=== PATIENT | female | born 1945 | race Caucasian/White ===

== ENCOUNTER 2016-05-20 17:21 | Inpatient (IN) | payer MEDICARE ==
[~2016-05-20] VITALS: Ht 165.1 cm; Wt 78.0 kg
[~2016-05-20 17:21] MED LIST: ADAL40KI SC; ALBU8.5H5 INH; ALLO300T PO; AMOX-291 PO; AMPI3VIA IV; BIOT25004 PO; CHOL10002 PO; CIPR500T87 PO; CYCL-259 PO; DIPH25CA61 PO; ENOX40SY4 SQ; ENOX80SY4 SQ; EZET1TAB5 PO; FLUO20CA19 PO; FOLI-17 PO; FURO-92 PO; GABA100C PO; HYDR-3144 PO; HYDR-3240 PO; IRON PO; LEVO137T22 PO; METH2.5T PO; MORP15TA3 PO; POTA20PA8 PO; PRED10TA PO; PRED20TA PO; PRED5TAB19 PO; RITU10VI IVPB; TRAM-28 PO; TRAM50TA2 PO; VITA400C14 PO; WARF4TAB7 PO
[2016-05-20] MEDS ORDERED: SODIUM CHLORIDE FLUSH 10ML SYR IVF ONE (17:30)
[2016-05-20] MEDS ORDERED: ONDANSETRON 2MG/ML, 2ML IVPush ONE (17:30)
[2016-05-20] MEDS ORDERED: SODIUM CHLORIDE 0.9% 1,000 ML IV ONE ×2 (17:30→18:45)
[2016-05-20] MEDS ORDERED: methylPREDNISolone SOD SUCC 125 MG/2 ML IVPush ONE (17:30)
[2016-05-20] MEDS ORDERED: MORPHINE SULFATE 4 MG/ML, 1ML IVPush PRN ×2 (17:30→23:00)
[2016-05-20 18:04] LABS: HEMOGLOBIN 11.7 g/dL (11.7-16.4)
[2016-05-20] MEDS ORDERED: methylPREDNISolone SOD SUCC 125 MG/2 ML ONE (18:10)
[2016-05-20] MEDS ORDERED: MORPHINE SULFATE 4 MG/ML, 1ML ONE (18:10)
[2016-05-20] MEDS ORDERED: ONDANSETRON 2MG/ML, 2ML ONE (18:10)
[2016-05-20 18:18] LABS: BLOOD UREA NITROGEN 21 mg/dL (7-18)
[2016-05-20 18:29] LABS: C-REACTIVE PROTEIN, QUANT > 19.00 mg/dL (0.02-0.49); DIFF TOTAL CELLS COUNTED 100 CELL DIFF
[2016-05-20 18:31] LABS: VERIFY COUNTS? YES
[2016-05-20] MEDS ORDERED: PIPERACILLIN/TAZO/PMX 3.375GM 50 ML IV ONE (19:00)
[2016-05-20] MEDS ORDERED: SODIUM CHLORIDE 0.9%, 500ML IVBOLUS ONE (19:30)
[2016-05-20 19:55] LABS: ICTOTEST NEGATIVE
[2016-05-20] MEDS ORDERED: PIPERACILLIN/TAZO/PMX 3.375GM 50 ML ONE (19:58)
[2016-05-20] MEDS ORDERED: LINA5TAB PO (20:17)
[2016-05-20] MEDS ORDERED: OMEP40CA6 PO (20:17)
[2016-05-20] MEDS: PIPERACILLIN/TAZO/PMX 3.375GM 50 ML IV SCH (20:55)
[2016-05-20] MEDS ORDERED: DOCUSATE 100 MG CAPSULE PO PRN (21:00)
[2016-05-20] MEDS ORDERED: ACETAMINOPHEN 325 MG TABLET PO PRN (21:00)
[2016-05-20] MEDS ORDERED: BISACODYL 10 MG SUPP PR PRN (21:00)
[2016-05-20] MEDS ORDERED: POLYETHYLENE GLYCOL 17 GM PACKET PO PRN (21:00)
[2016-05-20 21:28] LABS: IS PT STATUS REG ER OR PRE ER? YES
[2016-05-20] MEDS: PREDNISONE MC SCH (22:30)
[2016-05-20] MEDS: LINAGLIPTIN MC SCH (22:30)
[2016-05-20] MEDS ORDERED: HEPARIN 5,000 UNITS/ML, 1ML IV ONE (22:30)
[2016-05-20 22:43] VITALS: BP 99/61
[2016-05-20] MEDS: SODIUM CHLORIDE 0.9% 1,000 ML IV SCH (23:10)
[2016-05-20] MEDS: GABAPENTIN 100 MG CAPSULE PO SCH (23:15)
[2016-05-20] MEDS ORDERED: WARFARIN 3 MG TABLET PO-COUM ONE (23:30)
[2016-05-20] MEDS: INSULIN REGULAR 100 UNITS/ML, 3ML VIAL SQ-INSULIN SCH (23:42)
[2016-05-20] MEDS: HEPARIN 25,000 UNITS/500ML PMX 500 ML IV PRN (23:57)
[2016-05-21 02:58] VITALS: BP 90/56
[2016-05-21 03:14] LABS: HEMOGLOBIN 10.2 g/dL (11.7-16.4)
[2016-05-21 03:25] LABS: ASPARTATE AMINO TRANSFERASE 7 U/L (15-37); BLOOD UREA NITROGEN 23 mg/dL (7-18)
[2016-05-21 03:33] LABS: IS PT STATUS REG ER OR PRE ER? NO
[2016-05-21 03:43] LABS: DIFF TOTAL CELLS COUNTED 100 CELL DIFF
[2016-05-21 03:45] LABS: VERIFY COUNTS? YES
[2016-05-21 03:46] LABS: ANISOCYTOSIS 1+; LARGE PLATELETS 1+; POIKILOCYTOSIS 1+; POLYCHROMASIA 1+
[2016-05-21] MEDS: PIPERACILLIN/TAZO/PMX 3.375GM 50 ML IV SCH ×3 (04:12→21:06)
[2016-05-21] MEDS: LINAGLIPTIN MC SCH ×3 (05:52→22:30)
[2016-05-21] MEDS: PREDNISONE MC SCH ×2 (05:52→13:27)
[2016-05-21] MEDS: SODIUM CHLORIDE 0.9% 1,000 ML IV SCH (06:16)
[2016-05-21] MEDS: LEVOTHYROXINE 137 MCG TABLET PO SCH (06:16)
[2016-05-21 06:40] VITALS: BP 104/64
[2016-05-21] MEDS: INSULIN REGULAR 100 UNITS/ML, 3ML VIAL SQ-INSULIN SCH ×4 (08:13→21:21)
[2016-05-21] MEDS: GABAPENTIN 100 MG CAPSULE PO SCH ×2 (08:15→21:06)
[2016-05-21] MEDS: OMEPRAZOLE 20 MG CAPSULE.DR PO SCH (08:16)
[2016-05-21] MEDS: FLUOXETINE 20 MG CAPSULE PO SCH (08:17)
[2016-05-21] MEDS: FOLIC ACID 1 MG TABLET PO SCH (08:17)
[2016-05-21] MEDS: LINAGLIPTIN HOMEMEDPO SCH (08:21)
[2016-05-21 12:49] VITALS: BP 106/73
[2016-05-21] MEDS: HEPARIN 5,000 UNITS/ML, 1ML IV PRN ×2 (13:51→21:03)
[2016-05-21] MEDS ORDERED: WARFARIN 7.5 MG TABLET PO-COUM ONE (18:00)
[2016-05-21 18:25] VITALS: BP 110/69
[2016-05-21] MEDS: HEPARIN 25,000 UNITS/500ML PMX 500 ML IV PRN (21:04)
[2016-05-22 00:13] VITALS: BP 100/62
[2016-05-22 03:16] LABS: HEMOGLOBIN 9.1 g/dL (11.7-16.4)
[2016-05-22 03:25] LABS: BLOOD UREA NITROGEN 25 mg/dL (7-18)
[2016-05-22] MEDS: HEPARIN 25,000 UNITS/500ML PMX 500 ML IV PRN (03:51)
[2016-05-22] MEDS: PIPERACILLIN/TAZO/PMX 3.375GM 50 ML IV SCH (03:53)
[2016-05-22] MEDS: LEVOTHYROXINE 137 MCG TABLET PO SCH (05:15)
[2016-05-22 06:33] VITALS: BP 107/66
[2016-05-22] MEDS: INSULIN REGULAR 100 UNITS/ML, 3ML VIAL SQ-INSULIN SCH ×4 (07:00→21:00)
[2016-05-22] MEDS: FLUOXETINE 20 MG CAPSULE PO SCH (10:14)
[2016-05-22] MEDS: NAPHAZOLINE/PHENIRAMINE OPHTH EACHEYE SCH ×2 (10:14→21:28)
[2016-05-22] MEDS: GABAPENTIN 100 MG CAPSULE PO SCH ×2 (10:15→21:21)
[2016-05-22] MEDS: FOLIC ACID 1 MG TABLET PO SCH (10:15)
[2016-05-22] MEDS: OMEPRAZOLE 20 MG CAPSULE.DR PO SCH (10:15)
[2016-05-22] MEDS: FUROSEMIDE 20 MG TABLET PO SCH (10:15)
[2016-05-22] MEDS: LINAGLIPTIN HOMEMEDPO SCH (10:16)
[2016-05-22] MEDS: POTASSIUM CHLORIDE 20 MEQ PACKET PO SCH (10:16)
[2016-05-22] MEDS: HEPARIN 5,000 UNITS/ML, 1ML IV PRN (11:18)
[2016-05-22] MEDS: LEVOFLOXACIN/PMX 750MG/150ML 150 ML IV SCH (12:23)
[2016-05-22 13:27] VITALS: BP 121/78
[2016-05-22] MEDS: FERROUS SULFATE 325 MG TABLET PO SCH (16:47)
[2016-05-22] MEDS ORDERED: WARFARIN 5 MG TABLET PO-COUM ONE (18:00)
[2016-05-22 18:38] VITALS: BP 144/82
[2016-05-23 00:40] VITALS: BP 147/87
[2016-05-23] MEDS: LEVOTHYROXINE 137 MCG TABLET PO SCH (05:07)
[2016-05-23] MEDS: HEPARIN 25,000 UNITS/500ML PMX 500 ML IV PRN (05:09)
[2016-05-23 05:26] LABS: HEMOGLOBIN 9.1 g/dL (11.7-16.4)
[2016-05-23 05:43] LABS: BLOOD UREA NITROGEN 24 mg/dL (7-18)
[2016-05-23] MEDS: INSULIN REGULAR 100 UNITS/ML, 3ML VIAL SQ-INSULIN SCH ×3 (07:00→17:04)
[2016-05-23 07:01] VITALS: BP 149/89
[2016-05-23] MEDS: POTASSIUM CHLORIDE 20 MEQ PACKET PO SCH (08:28)
[2016-05-23] MEDS: FOLIC ACID 1 MG TABLET PO SCH (08:28)
[2016-05-23] MEDS: FLUOXETINE 20 MG CAPSULE PO SCH (08:28)
[2016-05-23] MEDS: OMEPRAZOLE 20 MG CAPSULE.DR PO SCH (08:28)
[2016-05-23] MEDS: NAPHAZOLINE/PHENIRAMINE OPHTH EACHEYE SCH (08:28)
[2016-05-23] MEDS: GABAPENTIN 100 MG CAPSULE PO SCH (08:28)
[2016-05-23] MEDS: FERROUS SULFATE 325 MG TABLET PO SCH ×2 (08:28→17:04)
[2016-05-23] MEDS: LINAGLIPTIN HOMEMEDPO SCH (08:29)
[2016-05-23] MEDS: FUROSEMIDE 20 MG TABLET PO SCH (08:29)
[2016-05-23] MEDS: LEVOFLOXACIN/PMX 750MG/150ML 150 ML IV SCH (11:55)
[2016-05-23 12:41] VITALS: BP 146/81
[2016-05-23] MEDS ORDERED: ENOXAPARIN 80 MG/0.8 ML SQ SCH (14:30)
[2016-05-23] MEDS ORDERED: PRED10TA PO (16:11)
[2016-05-23] MEDS ORDERED: LEVO750T26 PO (16:11)
[2016-05-23] MEDS ORDERED: WARFARIN 2 MG TABLET PO-COUM ONE (18:00)
[2016-05-24] MEDS ORDERED: LEVOFLOXACIN 750 MG TABLET PO SCH (12:00)
== END 2016-05-23 18:00 | disposition home or self-care (01) | DRG 871 ==
LOC: ED 18:12 → EDIP 20:43 → 3NW 21:57
PROVIDERS: ADMIT Internal Medicine
DX: A41.59 Other Gram-negative sepsis (principal); N17.0 Acute kidney failure with tubular necrosis; I50.32 Chronic diastolic (congestive) heart failure; N12 Tubulo-interstitial nephritis, not specified as acute or chronic; E11.65 Type 2 diabetes mellitus with hyperglycemia; I10 Essential (primary) hypertension; M06.9 Rheumatoid arthritis, unspecified; M10.9 Gout, unspecified; D64.9 Anemia, unspecified; B96.1 Klebsiella pneumoniae [K. pneumoniae] as the cause of diseases classified elsewhere; M19.90 Unspecified osteoarthritis, unspecified site; I27.2 Other secondary pulmonary hypertension; B96.89 Other specified bacterial agents as the cause of diseases classified elsewhere; I11.0 Hypertensive heart disease with heart failure; E66.9 Obesity, unspecified; N31.9 Neuromuscular dysfunction of bladder, unspecified; G62.9 Polyneuropathy, unspecified; E03.9 Hypothyroidism, unspecified; Z79.52 Long term (current) use of systemic steroids; Z87.891 Personal history of nicotine dependence; Z83.3 Family history of diabetes mellitus; Z79.899 Other long term (current) drug therapy; Z80.1 Family history of malignant neoplasm of trachea, bronchus and lung; Z80.41 Family history of malignant neoplasm of ovary; Z68.28 Body mass index [BMI] 28.0-28.9, adult; Z86.711 Personal history of pulmonary embolism; Z90.89 Acquired absence of other organs; Z90.49 Acquired absence of other specified parts of digestive tract; Z90.710 Acquired absence of both cervix and uterus
CPT/HCPCS: 36415; 71010; 80048; 80053; 81001; 82040; 82550; 82962; 83605; 83735; 84100; 84145; 84439; 84443; 84484; 84550; 85025; 85520; 85610; 85651; 86140; 87040; 87077; 87086; 87186; 96361; 96365; 96366; 96375; J1644; J1650; J1815; J1956; J2405; J2543; J2930; J7030; J7040; J7512

== ENCOUNTER 2016-05-26 18:34 | Inpatient (IN) | payer MEDICARE ==
[~2016-05-26] VITALS: Ht 165.1 cm; Wt 82.7 kg
[~2016-05-26 18:34] MED LIST changes: +LEVO750T26 PO; +LINA5TAB PO; +OMEP40CA6 PO
[2016-05-26] MEDS ORDERED: POTA25TA4 PO (19:26)
[2016-05-26] MEDS ORDERED: TRAM-28 PO (19:26)
[2016-05-26] MEDS ORDERED: RITU10VI IV (19:26)
[2016-05-26] MEDS ORDERED: SIMV40TA3 PO (19:26)
[2016-05-26] MEDS ORDERED: SODIUM CHLORIDE 0.9% 1,000ML IVBOLUS ONE (19:30)
[2016-05-26 20:02] LABS: ASPARTATE AMINO TRANSFERASE 10 U/L (15-37); BLOOD UREA NITROGEN 19 mg/dL (7-18)
[2016-05-26 20:12] LABS: HEMOGLOBIN 12.7 g/dL (11.7-16.4)
[2016-05-26 20:28] LABS: ANISOCYTOSIS 1+; MICROCYTOSIS 1+; POLYCHROMASIA 1+; SCHISTOCYTES 1+; SPHEROCYTES 1+
[2016-05-26 22:37] VITALS: BP 108/71
[2016-05-27] MEDS ORDERED: TEMAZEPAM 15 MG CAPSULE PO PRN (00:30)
[2016-05-27] MEDS: GABAPENTIN 300 MG CAPSULE PO SCH ×3 (01:09→20:12)
[2016-05-27] MEDS: SIMVASTATIN 40 MG TABLET PO SCH ×2 (01:09→20:13)
[2016-05-27 02:29] VITALS: BP 105/61
[2016-05-27] MEDS: FERROUS SULFATE 325 MG TABLET PO SCH (08:49)
[2016-05-27] MEDS: OMEPRAZOLE 20 MG CAPSULE.DR PO SCH (08:49)
[2016-05-27] MEDS: FLUOXETINE 20 MG CAPSULE PO SCH (08:49)
[2016-05-27] MEDS: SULFAMETH./TRIMETHOPRIM DS 800MG/160MG TABLET PO SCH ×2 (08:49→20:12)
[2016-05-27] MEDS: FOLIC ACID 1 MG TABLET PO SCH (08:50)
[2016-05-27] MEDS: VITAMIN E 400 UNITS CAPSULE PO SCH (08:50)
[2016-05-27] MEDS: FUROSEMIDE 20 MG TABLET PO SCH (08:50)
[2016-05-27] MEDS: LEVOTHYROXINE 112 MCG TABLET PO SCH (08:50)
[2016-05-27] MEDS: CHOLECALCIFEROL 1,000 UNIT TABLET PO SCH (08:50)
[2016-05-27] MEDS: BIOTIN 5000 MCG HOMEMEDPO SCH (09:00)
[2016-05-27] MEDS ORDERED: POTASSIUM CHLORIDE 10 MEQ TABLET.ER PO SCH (09:00)
[2016-05-27] MEDS: TEMPLATE NON-FORMULARY MED. (Linagliptin** (Tradjenta**) 5 MG) HOMEMEDPO SCH (09:00)
[2016-05-27 09:34] VITALS: BP 109/62
[2016-05-27 12:13] LABS: HEMOGLOBIN 11.8 g/dL (11.7-16.4)
[2016-05-27 12:25] LABS: BLOOD UREA NITROGEN 17 mg/dL (7-18)
[2016-05-27] MEDS: POTASSIUM CHLORIDE 20 MEQ PACKET PO SCH (12:27)
[2016-05-27 12:38] VITALS: BP 108/73
[2016-05-27] MEDS ORDERED: WARFARIN 2 MG TABLET PO-COUM SCH (18:00)
[2016-05-27 19:08] VITALS: BP 108/68
[2016-05-28 02:58] VITALS: BP 139/77
[2016-05-28 07:02] VITALS: BP 147/81
[2016-05-28] MEDS: TEMPLATE NON-FORMULARY MED. (Linagliptin** (Tradjenta**) 5 MG) HOMEMEDPO SCH (08:10)
[2016-05-28] MEDS: BIOTIN 5000 MCG HOMEMEDPO SCH (08:10)
[2016-05-28] MEDS: POTASSIUM CHLORIDE 20 MEQ PACKET PO SCH (08:19)
[2016-05-28] MEDS: FUROSEMIDE 20 MG TABLET PO SCH (08:20)
[2016-05-28] MEDS: FOLIC ACID 1 MG TABLET PO SCH (08:20)
[2016-05-28] MEDS: GABAPENTIN 300 MG CAPSULE PO SCH ×2 (08:20→21:42)
[2016-05-28] MEDS: FERROUS SULFATE 325 MG TABLET PO SCH (08:20)
[2016-05-28] MEDS: OMEPRAZOLE 20 MG CAPSULE.DR PO SCH (08:20)
[2016-05-28] MEDS: LEVOTHYROXINE 112 MCG TABLET PO SCH (08:21)
[2016-05-28] MEDS: CHOLECALCIFEROL 1,000 UNIT TABLET PO SCH (08:21)
[2016-05-28] MEDS: VITAMIN E 400 UNITS CAPSULE PO SCH (08:21)
[2016-05-28] MEDS: FLUOXETINE 20 MG CAPSULE PO SCH (08:21)
[2016-05-28] MEDS: SULFAMETH./TRIMETHOPRIM DS 800MG/160MG TABLET PO SCH ×2 (08:32→21:42)
[2016-05-28 12:32] LABS: BLOOD UREA NITROGEN 23 mg/dL (7-18)
[2016-05-28 13:43] VITALS: BP 123/79
[2016-05-28] MEDS ORDERED: WARFARIN 5 MG TABLET PO-COUM ONE (18:00)
[2016-05-28] MEDS: SODIUM CHLORIDE 0.9% 1,000 ML IV SCH ×2 (18:02→21:42)
[2016-05-28 20:09] VITALS: BP 123/74
[2016-05-28] MEDS: SIMVASTATIN 40 MG TABLET PO SCH (21:42)
[2016-05-29 01:53] VITALS: BP 115/72
[2016-05-29] MEDS: SODIUM CHLORIDE 0.9% 1,000 ML IV SCH ×2 (05:56→16:00)
[2016-05-29 07:07] LABS: BLOOD UREA NITROGEN 23 mg/dL (7-18)
[2016-05-29 07:17] VITALS: BP 115/74
[2016-05-29] MEDS: POTASSIUM CHLORIDE 20 MEQ PACKET PO SCH (08:14)
[2016-05-29] MEDS: FERROUS SULFATE 325 MG TABLET PO SCH (08:14)
[2016-05-29] MEDS: FOLIC ACID 1 MG TABLET PO SCH (08:15)
[2016-05-29] MEDS: FUROSEMIDE 20 MG TABLET PO SCH (08:16)
[2016-05-29] MEDS: SULFAMETH./TRIMETHOPRIM DS 800MG/160MG TABLET PO SCH ×2 (08:16→21:31)
[2016-05-29] MEDS: FLUOXETINE 20 MG CAPSULE PO SCH (08:16)
[2016-05-29] MEDS: OMEPRAZOLE 20 MG CAPSULE.DR PO SCH (08:16)
[2016-05-29] MEDS: GABAPENTIN 300 MG CAPSULE PO SCH ×2 (08:16→21:31)
[2016-05-29] MEDS: VITAMIN E 400 UNITS CAPSULE PO SCH (08:17)
[2016-05-29] MEDS: CHOLECALCIFEROL 1,000 UNIT TABLET PO SCH (08:18)
[2016-05-29] MEDS: TEMPLATE NON-FORMULARY MED. (Linagliptin** (Tradjenta**) 5 MG) HOMEMEDPO SCH (08:24)
[2016-05-29] MEDS: BIOTIN 5000 MCG HOMEMEDPO SCH (08:24)
[2016-05-29] MEDS: LEVOTHYROXINE 100 MCG TABLET PO SCH (08:25)
[2016-05-29] MEDS ORDERED: HEPARIN 25,000 UNITS/500ML PMX 500 ML IV PRN ×2 (08:30→09:00)
[2016-05-29] MEDS ORDERED: HEPARIN 5,000 UNITS/ML, 1ML IV PRN (09:00)
[2016-05-29] MEDS ORDERED: HEPARIN 5,000 UNITS/ML, 1ML IV ONE (09:00)
[2016-05-29 13:46] VITALS: BP 126/71
[2016-05-29] MEDS ORDERED: WARFARIN 3 MG TABLET PO-COUM ONE (18:00)
[2016-05-29 18:59] VITALS: BP 119/70
[2016-05-30 02:10] VITALS: BP 133/75
[2016-05-30] MEDS: LEVOTHYROXINE 100 MCG TABLET PO SCH (06:23)
[2016-05-30 08:01] VITALS: BP 127/81
[2016-05-30] MEDS: TEMPLATE NON-FORMULARY MED. (Linagliptin** (Tradjenta**) 5 MG) HOMEMEDPO SCH (09:00)
[2016-05-30] MEDS: BIOTIN 5000 MCG HOMEMEDPO SCH (09:00)
[2016-05-30] MEDS: POTASSIUM CHLORIDE 20 MEQ PACKET PO SCH (09:28)
[2016-05-30] MEDS: CHOLECALCIFEROL 1,000 UNIT TABLET PO SCH (09:35)
[2016-05-30] MEDS: VITAMIN E 400 UNITS CAPSULE PO SCH (09:35)
[2016-05-30] MEDS: SULFAMETH./TRIMETHOPRIM DS 800MG/160MG TABLET PO SCH (09:35)
[2016-05-30] MEDS: OMEPRAZOLE 20 MG CAPSULE.DR PO SCH (09:36)
[2016-05-30] MEDS: FLUOXETINE 20 MG CAPSULE PO SCH (09:36)
[2016-05-30] MEDS: GABAPENTIN 300 MG CAPSULE PO SCH (09:36)
[2016-05-30] MEDS: FERROUS SULFATE 325 MG TABLET PO SCH (09:37)
[2016-05-30] MEDS: FOLIC ACID 1 MG TABLET PO SCH (09:37)
[2016-05-30] MEDS: FUROSEMIDE 20 MG TABLET PO SCH (09:37)
[2016-05-30] MEDS ORDERED: HEPARIN 25,000 UNITS/500ML PMX 500 ML IV PRN (12:30)
[2016-05-30 13:22] VITALS: BP 127/85
[2016-05-30] MEDS ORDERED: HEPARIN 5,000 UNITS/ML, 1ML IV PRN (13:30)
[2016-05-30] MEDS ORDERED: ENOX80SY4 SQ (14:51)
[2016-05-30] MEDS ORDERED: ENOXAPARIN 80 MG/0.8 ML SQ SCH (15:00)
[2016-05-30] MEDS ORDERED: WARFARIN 5 MG TABLET PO-COUM SCH (18:00)
== END 2016-05-30 16:23 | DRG 640 ==
LOC: ED 21:16 → INTOOBSV 22:22 → EDIP 22:22 → 4NOR 22:28 → OBSVTOIN 05-28 13:34
PROVIDERS: ADMIT Internal Medicine; ATTEND Internal Medicine
PROC: 0T9B70Z Drainage of Bladder with Drainage Device, Via Natural or Artificial Opening (ICD-10-PCS; principal; 2016-05-28)
DX: E87.1 Hypo-osmolality and hyponatremia (principal); N17.0 Acute kidney failure with tubular necrosis; D68.59 Other primary thrombophilia; I13.0 Hypertensive heart and chronic kidney disease with heart failure and stage 1 through stage 4 chronic kidney disease, or unspecified chronic kidney disease; M86.9 Osteomyelitis, unspecified; E44.1 Mild protein-calorie malnutrition; I50.32 Chronic diastolic (congestive) heart failure; N12 Tubulo-interstitial nephritis, not specified as acute or chronic; E11.22 Type 2 diabetes mellitus with diabetic chronic kidney disease; E11.65 Type 2 diabetes mellitus with hyperglycemia; M10.9 Gout, unspecified; M06.9 Rheumatoid arthritis, unspecified; I27.2 Other secondary pulmonary hypertension; D64.9 Anemia, unspecified; N18.3 Chronic kidney disease, stage 3 (moderate); E86.1 Hypovolemia; F41.9 Anxiety disorder, unspecified; E03.9 Hypothyroidism, unspecified; G89.29 Other chronic pain; F32.9 Major depressive disorder, single episode, unspecified; E78.5 Hyperlipidemia, unspecified; Z79.01 Long term (current) use of anticoagulants; Z90.49 Acquired absence of other specified parts of digestive tract; Z90.710 Acquired absence of both cervix and uterus; Z90.89 Acquired absence of other organs; Z86.711 Personal history of pulmonary embolism; Z82.3 Family history of stroke; Z83.3 Family history of diabetes mellitus; Z80.41 Family history of malignant neoplasm of ovary; Z80.1 Family history of malignant neoplasm of trachea, bronchus and lung; Z87.891 Personal history of nicotine dependence; Z88.6 Allergy status to analgesic agent; Z88.1 Allergy status to other antibiotic agents; Z88.5 Allergy status to narcotic agent; Z68.30 Body mass index [BMI] 30.0-30.9, adult; Z88.8 Allergy status to other drugs, medicaments and biological substances; Z82.49 Family history of ischemic heart disease and other diseases of the circulatory system; Z87.440 Personal history of urinary (tract) infections
CPT/HCPCS: 36415; 70551; 71010; 72141; 72146; 72148; 80048; 80053; 81003; 82550; 82565; 83605; 83615; 84145; 84439; 84443; 84520; 85025; 85520; 85610; 87040; 87324; 96360; 96361; G0378; J1644; J1650; J7030; J7512

== ENCOUNTER 2016-07-28 21:10 | Inpatient (IN) | payer MEDICARE ==
[~2016-07-28] VITALS: Ht 165.1 cm; Wt 73.2 kg
[~2016-07-28 21:10] MED LIST changes: +POTA25TA4 PO; +RITU10VI IV; +SIMV40TA3 PO
[2016-07-28] MEDS ORDERED: RITU10VI IV (21:39)
[2016-07-28] MEDS ORDERED: SIMV40TA3 PO (21:39)
[2016-07-28] MEDS ORDERED: CHOL10002 PO (21:39)
[2016-07-28] MEDS ORDERED: VITA400C40 PO (21:39)
[2016-07-28] MEDS ORDERED: GABA300C PO (21:39)
[2016-07-28] MEDS ORDERED: HYDR-3240 PO (21:39)
[2016-07-28] MEDS ORDERED: PRED10TA PO (21:39)
[2016-07-28] MEDS ORDERED: TRAM-28 PO (21:39)
[2016-07-28] MEDS ORDERED: WARF1TAB PO (21:39)
[2016-07-28] MEDS ORDERED: DOCU100C8 PO (21:39)
[2016-07-28] MEDS ORDERED: MORP15TA3 PO (21:39)
[2016-07-28] MEDS ORDERED: BIOT5TAB PO (21:39)
[2016-07-28] MEDS ORDERED: POTA10CA PO (21:39)
[2016-07-28] MEDS ORDERED: LINA5TAB PO (21:39)
[2016-07-28] MEDS ORDERED: ALLO300T PO (21:39)
[2016-07-28] MEDS ORDERED: OMEP40CA6 PO (21:39)
[2016-07-28] MEDS ORDERED: FOLI0.4T2 PO (21:39)
[2016-07-28] MEDS ORDERED: FURO-93 PO (21:39)
[2016-07-28] MEDS ORDERED: FLUO40CA9 PO (21:39)
[2016-07-28] MEDS ORDERED: SODIUM CHLORIDE FLUSH 10ML SYR IVF ONE (22:00)
[2016-07-28] MEDS ORDERED: SODIUM CHLORIDE 0.9% 1,000ML IVBOLUS ONE ×2 (22:00→22:30)
[2016-07-28 22:08] LABS: ABG COLLECTION SITE RIGHT RADIAL; COLLATERAL CIRCULATION TESTING NORMAL
[2016-07-28 22:12] LABS: DAU SCREEN DISCLAIMER
[2016-07-28 22:21] LABS: ASPARTATE AMINO TRANSFERASE 21 U/L (15-37); BLOOD UREA NITROGEN 55 mg/dL (7-18)
[2016-07-28 22:26] LABS: DIFF TOTAL CELLS COUNTED 100 CELL DIFF
[2016-07-28 22:28] LABS: ACETAMINOPHEN < 2 mcg/mL (10-30); IS PT STATUS REG ER OR PRE ER? YES
[2016-07-28] MEDS ORDERED: VANCOMYCIN PER PHARMACY MC ONE (22:30)
[2016-07-28] MEDS ORDERED: PIPERACILLIN/TAZO/PMX 4.5GM 100 ML IVPB ONE (22:30)
[2016-07-28] MEDS ORDERED: SODIUM CHLORIDE 0.9%, 500ML IVBOLUS ONE (22:30)
[2016-07-28 22:37] LABS: ANISOCYTOSIS 1+; VERIFY COUNTS? YES
[2016-07-28 22:38] LABS: POLYCHROMASIA 1+; STOMATOCYTES 1+
[2016-07-28 22:43] LABS: MICROCYTOSIS 1+
[2016-07-28] MEDS ORDERED: VANCOMYCIN 1,000 MG in SODIUM CHLORIDE 0.9% 100 ML IV ONE (23:00)
[2016-07-28] MEDS ORDERED: ONDANSETRON 2MG/ML, 2ML IVPush PRN (23:30)
[2016-07-28] MEDS ORDERED: HYDROcodone/APAP 5/325 TABLET PO PRN (23:30)
[2016-07-28] MEDS ORDERED: INSULIN ASPART 100 UNITS/ML, PEN SQ-INSULIN SCH (23:30)
[2016-07-28] MEDS ORDERED: PHARMACY MAY ADJ FOR RENAL FX MC PRN (23:30)
[2016-07-29] MEDS ORDERED: MEROPENEM 1 GM in SODIUM CHLORIDE 0.9% 50 ML IV SCH
[2016-07-29] MEDS ORDERED: MEROPENEM 1 GM in SODIUM CHLORIDE 0.9% 100 ML IV SCH
[2016-07-29] MEDS: SODIUM CHLORIDE 0.9% 1,000 ML IV SCH (00:24)
[2016-07-29 00:36] VITALS: BP 131/82
[2016-07-29 03:38] VITALS: BP 124/61
[2016-07-29 06:23] LABS: BLOOD UREA NITROGEN 47 mg/dL (7-18)
[2016-07-29] MEDS: FLUOXETINE 20 MG CAPSULE PO SCH (08:30)
[2016-07-29] MEDS: ALLOPURINOL 300 MG TABLET PO SCH (08:30)
[2016-07-29] MEDS: DOCUSATE 100 MG CAPSULE PO SCH (08:30)
[2016-07-29] MEDS: GABAPENTIN 300 MG CAPSULE PO SCH ×2 (08:30→21:00)
[2016-07-29] MEDS: LINAGLIPTIN PO SCH (08:30)
[2016-07-29] MEDS: FOLIC ACID 1 MG TABLET PO SCH (08:30)
[2016-07-29] MEDS: CHOLECALCIFEROL 1,000 UNIT TABLET PO SCH (08:30)
[2016-07-29] MEDS: TEMPLATE NON-FORMULARY MED. (Omeprazole** 40 MG) PO SCH (09:00)
[2016-07-29] MEDS ORDERED: WARFARIN 1 MG TABLET PO-COUM SCH (09:00)
[2016-07-29] MEDS ORDERED: WARFARIN 1 MG TABLET PO-COUM ONE (18:00)
[2016-07-29] MEDS: SIMVASTATIN 40 MG TABLET PO SCH (21:00)
[2016-07-30 04:27] VITALS: BP 134/80
[2016-07-30] MEDS: INSULIN ASPART 100 UNITS/ML, 3ML PEN MEDIUM DOSE SS SQ-INSULIN SCH ×5 (08:40→21:00)
[2016-07-30] MEDS: TEMPLATE NON-FORMULARY MED. (Omeprazole** 40 MG) PO SCH (09:00)
[2016-07-30] MEDS: FLUOXETINE 20 MG CAPSULE PO SCH (09:00)
[2016-07-30] MEDS: ALLOPURINOL 300 MG TABLET PO SCH ×2 (09:00→09:30)
[2016-07-30] MEDS: FOLIC ACID 1 MG TABLET PO SCH ×2 (09:00→09:30)
[2016-07-30] MEDS: CHOLECALCIFEROL 1,000 UNIT TABLET PO SCH ×2 (09:00→09:30)
[2016-07-30] MEDS: LINAGLIPTIN PO SCH (09:00)
[2016-07-30] MEDS: GABAPENTIN 300 MG CAPSULE PO SCH ×2 (09:00→21:00)
[2016-07-30] MEDS: DOCUSATE 100 MG CAPSULE PO SCH ×2 (09:00→09:30)
[2016-07-30] MEDS: SODIUM CHLORIDE 0.9% 1,000 ML IV SCH ×3 (09:21→21:00)
[2016-07-30 12:30] VITALS: BP 174/88
[2016-07-30] MEDS ORDERED: PHARMACY MAY ADJ FOR RENAL FX MC PRN (16:00)
[2016-07-30 16:27] LABS: BLOOD UREA NITROGEN 25 mg/dL (7-18)
[2016-07-30] MEDS ORDERED: MEROPENEM 500 MG in SODIUM CHLORIDE 0.9% 100 ML IV SCH (18:00)
[2016-07-30] MEDS ORDERED: WARFARIN 1 MG TABLET PO-COUM ONE (18:30)
[2016-07-30 20:00] VITALS: BP 135/73
[2016-07-30] MEDS: SIMVASTATIN 40 MG TABLET PO SCH (21:00)
[2016-07-31 02:00] VITALS: BP 163/85
[2016-07-31 06:42] LABS: ASPARTATE AMINO TRANSFERASE 20 U/L (15-37); BLOOD UREA NITROGEN 22 mg/dL (7-18)
[2016-07-31 07:46] VITALS: BP 178/107
[2016-07-31] MEDS ORDERED: HEPARIN 25,000 UNITS/500ML PMX 500 ML IV PRN ×2 (08:00→08:30)
[2016-07-31] MEDS: INSULIN ASPART 100 UNITS/ML, 3ML PEN MEDIUM DOSE SS SQ-INSULIN SCH ×4 (08:27→21:10)
[2016-07-31] MEDS ORDERED: HEPARIN 5,000 UNITS/ML, 1ML IV ONE (08:30)
[2016-07-31] MEDS ORDERED: HEPARIN 5,000 UNITS/ML, 1ML IV PRN (08:30)
[2016-07-31] MEDS: OMEPRAZOLE 20 MG CAPSULE.DR PO SCH (08:34)
[2016-07-31] MEDS: GABAPENTIN 300 MG CAPSULE PO SCH ×2 (08:34→21:10)
[2016-07-31] MEDS: CHOLECALCIFEROL 1,000 UNIT TABLET PO SCH (08:34)
[2016-07-31] MEDS: ALLOPURINOL 300 MG TABLET PO SCH (08:34)
[2016-07-31] MEDS: FOLIC ACID 1 MG TABLET PO SCH (08:34)
[2016-07-31] MEDS: FLUOXETINE 20 MG CAPSULE PO SCH (08:35)
[2016-07-31] MEDS: LINAGLIPTIN PO SCH (08:35)
[2016-07-31] MEDS: DOCUSATE 100 MG CAPSULE PO SCH (09:00)
[2016-07-31 09:14] LABS: BLOOD UREA NITROGEN 22 mg/dL (7-18)
[2016-07-31 13:37] VITALS: BP 155/82
[2016-07-31] MEDS: MEROPENEM 500 MG in SODIUM CHLORIDE 0.9% 100 ML IV SCH (15:50)
[2016-07-31] MEDS ORDERED: WARFARIN 2 MG TABLET PO-COUM ONE (18:00)
[2016-07-31 20:00] VITALS: BP 156/88
[2016-07-31] MEDS: SIMVASTATIN 40 MG TABLET PO SCH (21:10)
[2016-08-01 02:00] VITALS: BP 195/80
[2016-08-01] MEDS: MEROPENEM 500 MG in SODIUM CHLORIDE 0.9% 100 ML IV SCH ×2 (04:26→16:40)
[2016-08-01 06:49] LABS: ASPARTATE AMINO TRANSFERASE 14 U/L (15-37); BLOOD UREA NITROGEN 20 mg/dL (7-18)
[2016-08-01 06:56] VITALS: BP 153/95
[2016-08-01] MEDS: INSULIN ASPART 100 UNITS/ML, 3ML PEN MEDIUM DOSE SS SQ-INSULIN SCH ×3 (07:00→16:49)
[2016-08-01] MEDS: GABAPENTIN 300 MG CAPSULE PO SCH (08:22)
[2016-08-01] MEDS: FLUOXETINE 20 MG CAPSULE PO SCH (08:22)
[2016-08-01] MEDS: CHOLECALCIFEROL 1,000 UNIT TABLET PO SCH (08:23)
[2016-08-01] MEDS: FOLIC ACID 1 MG TABLET PO SCH (08:23)
[2016-08-01] MEDS: OMEPRAZOLE 20 MG CAPSULE.DR PO SCH (08:23)
[2016-08-01] MEDS: ALLOPURINOL 300 MG TABLET PO SCH (08:23)
[2016-08-01] MEDS: DOCUSATE 100 MG CAPSULE PO SCH (08:24)
[2016-08-01] MEDS: LINAGLIPTIN PO SCH (09:00)
[2016-08-01 14:39] VITALS: BP 172/91
[2016-08-01] MEDS ORDERED: WARF3TAB PO (15:13)
[2016-08-01] MEDS ORDERED: ENOX80SY4 SQ (15:13)
[2016-08-01] MEDS ORDERED: SULF1TAB24 PO (15:15)
[2016-08-01] MEDS ORDERED: WARFARIN 7.5 MG TABLET PO-COUM ONE (18:00)
[2016-08-02 10:41] LABS: ASPARTATE AMINO TRANSFERASE 8 U/L (15-37); BLOOD UREA NITROGEN 35 mg/dL (7-18)
[2016-08-08] MEDS ORDERED: ATOR40TA78 PO (09:51)
[2016-08-08] MEDS ORDERED: PRED20TA PO (09:51)
[2016-08-08] MEDS ORDERED: WARF5TAB PO (09:51)
[2016-08-08] MEDS ORDERED: AMLO5TAB2 PO (09:51)
== END 2016-08-01 17:59 | disposition home health service (06) | DRG 871 ==
LOC: ED 21:49 → EDIP 23:07 → 4EST 07-29 00:01
PROVIDERS: ADMIT Internal Medicine; ATTEND Internal Medicine
PROC: 0T9B70Z Drainage of Bladder with Drainage Device, Via Natural or Artificial Opening (ICD-10-PCS; principal; 2016-07-28)
DX: A41.9 Sepsis, unspecified organism (principal); G92 Toxic encephalopathy; E43 Unspecified severe protein-calorie malnutrition; N17.0 Acute kidney failure with tubular necrosis; I50.32 Chronic diastolic (congestive) heart failure; N39.0 Urinary tract infection, site not specified; I13.0 Hypertensive heart and chronic kidney disease with heart failure and stage 1 through stage 4 chronic kidney disease, or unspecified chronic kidney disease; B96.1 Klebsiella pneumoniae [K. pneumoniae] as the cause of diseases classified elsewhere; D64.9 Anemia, unspecified; E03.9 Hypothyroidism, unspecified; E11.22 Type 2 diabetes mellitus with diabetic chronic kidney disease; F41.9 Anxiety disorder, unspecified; E11.42 Type 2 diabetes mellitus with diabetic polyneuropathy; E11.65 Type 2 diabetes mellitus with hyperglycemia; E78.5 Hyperlipidemia, unspecified; E07.9 Disorder of thyroid, unspecified; G89.4 Chronic pain syndrome; M06.9 Rheumatoid arthritis, unspecified; I27.2 Other secondary pulmonary hypertension; M10.9 Gout, unspecified; N31.9 Neuromuscular dysfunction of bladder, unspecified; N18.9 Chronic kidney disease, unspecified; R65.20 Severe sepsis without septic shock; Z79.01 Long term (current) use of anticoagulants; Z79.52 Long term (current) use of systemic steroids; Z79.899 Other long term (current) drug therapy; Z80.1 Family history of malignant neoplasm of trachea, bronchus and lung; Z80.3 Family history of malignant neoplasm of breast; Z80.41 Family history of malignant neoplasm of ovary; Z82.3 Family history of stroke; Z83.3 Family history of diabetes mellitus; Z86.711 Personal history of pulmonary embolism; Z87.891 Personal history of nicotine dependence; Z90.49 Acquired absence of other specified parts of digestive tract; Z90.710 Acquired absence of both cervix and uterus; Z98.1 Arthrodesis status; Z88.6 Allergy status to analgesic agent; Z88.1 Allergy status to other antibiotic agents; Z88.8 Allergy status to other drugs, medicaments and biological substances; Z68.26 Body mass index [BMI] 26.0-26.9, adult
CPT/HCPCS: 36415; 36600; 70450; 71010; 80048; 80053; 80307; 80329; 81001; 82040; 82140; 82803; 82962; 83036; 83605; 83735; 84145; 84443; 84484; 85014; 85018; 85025; 85520; 85610; 85730; 87040; 87077; 87086; 87186; 93005; 96365; J1644; J1815; J2185; J2543; J3370; G0480; J7030; J7040; J7512

== ENCOUNTER 2016-11-01 16:04 | Inpatient (IN) | payer MEDICARE ==
[~2016-11-01] VITALS: Ht 157.5 cm; Wt 77.3 kg
[~2016-11-01 16:04] MED LIST changes: +AMLO5TAB2 PO; +ATOR40TA78 PO; -BIOT25004 PO; +BIOT25005 PO; +BIOT5TAB PO; +DOCU100C33 PO; +EZET1TAB35 PO; -EZET1TAB5 PO; +FLUO40CA9 PO; +FOLI0.4T2 PO; +FURO-93 PO; +GABA300C PO; -HYDR-3144 PO; +HYDR-3245 PO; -LEVO137T22 PO; +LEVO137T25 PO; +POTA10CA PO; +POTA20PA25 PO; -POTA20PA8 PO; +SULF1TAB24 PO; -TRAM-28 PO; +TRAM-47 PO; +VITA400C43 PO; +WARF1TAB PO; +WARF3TAB PO; +WARF5TAB PO
[2016-11-01] MEDS ORDERED: SODIUM CHLORIDE 0.9% 1,000ML IVBOLUS ONE (16:30)
[2016-11-01] MEDS ORDERED: SODIUM CHLORIDE FLUSH 10ML SYR IVF ONE ×2 (16:30→20:30)
[2016-11-01 16:51] LABS: HEMATOCRIT 39.9 % (34.6-47.8); HEMOGLOBIN 13.1 g/dL (11.7-16.4); WHITE BLOOD COUNT 12.2 x10^3/uL (3.4-10)
[2016-11-01 17:01] LABS: BLOOD UREA NITROGEN 14 mg/dL (7-18)
[2016-11-01] MEDS ORDERED: BISACODYL 10 MG SUPP PR PRN (21:30)
[2016-11-01] MEDS ORDERED: POLYETHYLENE GLYCOL 17 GM PACKET PO PRN (21:30)
[2016-11-01] MEDS ORDERED: ONDANSETRON 2MG/ML, 2ML IVPush PRN (21:30)
[2016-11-01] MEDS ORDERED: ACETAMINOPHEN 325 MG TABLET PO PRN (21:30)
[2016-11-01] MEDS ORDERED: MORPHINE SULFATE 4 MG/ML, 1ML IVPush PRN (21:30)
[2016-11-01] MEDS ORDERED: ENALAPRILAT 1.25 MG/ML, 2ML IVPush PRN (21:30)
[2016-11-01] MEDS ORDERED: hydrALAzine 20 MG/ML, 1ML IVPush PRN (21:30)
[2016-11-01] MEDS ORDERED: WARFARIN 2 MG TABLET PO-COUM ONE ×2 (22:00)
[2016-11-01 22:30] VITALS: BP 158/89
[2016-11-01] MEDS: GABAPENTIN 300 MG CAPSULE PO SCH (22:55)
[2016-11-01] MEDS: ATORVASTATIN 40 MG TABLET PO SCH (22:55)
[2016-11-01] MEDS: SODIUM CHLORIDE 0.9% 1,000 ML IV SCH (22:56)
[2016-11-01] MEDS: ERTAPENEM 1 GM in SODIUM CHLORIDE 0.9% 50 ML IV SCH (22:56)
[2016-11-02] MEDS: HYDROcodone/APAP 5/325 TABLET PO PRN ×2 (00:25→10:17)
[2016-11-02 03:27] VITALS: BP 152/68
[2016-11-02 05:22] LABS: HEMATOCRIT 33.9 % (34.6-47.8); HEMOGLOBIN 11.4 g/dL (11.7-16.4); WHITE BLOOD COUNT 7.6 x10^3/uL (3.4-10)
[2016-11-02 05:50] LABS: ASPARTATE AMINO TRANSFERASE 10 U/L (15-37); BLOOD UREA NITROGEN 12 mg/dL (7-18)
[2016-11-02 06:46] VITALS: BP 140/88
[2016-11-02] MEDS: GABAPENTIN 300 MG CAPSULE PO SCH ×2 (08:24→21:03)
[2016-11-02] MEDS: SODIUM CHLORIDE 0.9% 1,000 ML IV SCH ×2 (08:24→17:15)
[2016-11-02] MEDS: OMEPRAZOLE 20 MG CAPSULE.DR PO SCH (08:24)
[2016-11-02] MEDS: FOLIC ACID 1 MG TABLET PO SCH (08:24)
[2016-11-02] MEDS: FLUOXETINE 20 MG CAPSULE PO SCH (08:25)
[2016-11-02] MEDS: VITAMIN E 400 UNITS CAPSULE PO SCH (08:25)
[2016-11-02] MEDS: CHOLECALCIFEROL 1,000 UNIT TABLET PO SCH (08:25)
[2016-11-02] MEDS: AMLODIPINE 5 MG TABLET PO SCH (08:25)
[2016-11-02] MEDS: SENNA/DOCUSATE TABLET PO SCH (08:25)
[2016-11-02] MEDS: ALLOPURINOL 300 MG TABLET PO SCH (08:27)
[2016-11-02] MEDS: LINAGLIPTIN 5 MG HOMEMEDPO SCH (08:29)
[2016-11-02] MEDS: INSULIN ASPART 100 UNITS/ML, PEN SQ-INSULIN SCH ×3 (11:00→21:13)
[2016-11-02 14:20] VITALS: BP 108/70
[2016-11-02] MEDS ORDERED: WARFARIN 3 MG TABLET PO-COUM ONE (18:00)
[2016-11-02 19:24] VITALS: BP 98/63
[2016-11-02] MEDS: ATORVASTATIN 40 MG TABLET PO SCH (21:03)
[2016-11-02] MEDS: ERTAPENEM 1 GM in SODIUM CHLORIDE 0.9% 50 ML IV SCH (22:10)
[2016-11-03 01:28] VITALS: BP 116/73
[2016-11-03 05:04] LABS: HEMOGLOBIN 10.7 g/dL (11.7-16.4)
[2016-11-03 05:27] LABS: HEMATOCRIT 32.4 % (34.6-47.8); WHITE BLOOD COUNT 6.5 x10^3/uL (3.4-10)
[2016-11-03] MEDS: INSULIN ASPART 100 UNITS/ML, PEN SQ-INSULIN SCH ×3 (07:00→16:00)
[2016-11-03 07:26] VITALS: BP 145/89
[2016-11-03] MEDS: LINAGLIPTIN 5 MG HOMEMEDPO SCH (09:00)
[2016-11-03] MEDS: FOLIC ACID 1 MG TABLET PO SCH (09:20)
[2016-11-03] MEDS: AMLODIPINE 5 MG TABLET PO SCH (09:20)
[2016-11-03] MEDS: OMEPRAZOLE 20 MG CAPSULE.DR PO SCH (09:20)
[2016-11-03] MEDS: GABAPENTIN 300 MG CAPSULE PO SCH (09:20)
[2016-11-03] MEDS: ALLOPURINOL 300 MG TABLET PO SCH (09:21)
[2016-11-03] MEDS: FLUOXETINE 20 MG CAPSULE PO SCH (09:21)
[2016-11-03] MEDS: VITAMIN E 400 UNITS CAPSULE PO SCH (09:21)
[2016-11-03] MEDS: CHOLECALCIFEROL 1,000 UNIT TABLET PO SCH (09:21)
[2016-11-03] MEDS: SENNA/DOCUSATE TABLET PO SCH (09:21)
[2016-11-03] MEDS ORDERED: SULF1TAB24 PO (15:13)
[2016-11-03 15:32] VITALS: BP 136/79
[2016-11-03] MEDS ORDERED: WARFARIN 2 MG TABLET PO-COUM ONE (18:00)
== END 2016-11-03 18:16 | disposition home or self-care (01) | DRG 871 ==
LOC: ED 16:26 → EDIP 19:30 → 3NE 20:34
PROVIDERS: ADMIT Internal Medicine; ATTEND Internal Medicine
PROC: 0T9B70Z Drainage of Bladder with Drainage Device, Via Natural or Artificial Opening (ICD-10-PCS; principal; 2016-11-01)
DX: A41.9 Sepsis, unspecified organism (principal); G93.41 Metabolic encephalopathy; I27.2 Other secondary pulmonary hypertension; I11.0 Hypertensive heart disease with heart failure; I50.32 Chronic diastolic (congestive) heart failure; N30.90 Cystitis, unspecified without hematuria; B96.1 Klebsiella pneumoniae [K. pneumoniae] as the cause of diseases classified elsewhere; E11.9 Type 2 diabetes mellitus without complications; F32.9 Major depressive disorder, single episode, unspecified; E03.9 Hypothyroidism, unspecified; E78.5 Hyperlipidemia, unspecified; F41.9 Anxiety disorder, unspecified; G89.29 Other chronic pain; M06.9 Rheumatoid arthritis, unspecified; M10.9 Gout, unspecified; Z79.01 Long term (current) use of anticoagulants; Z79.891 Long term (current) use of opiate analgesic; Z86.711 Personal history of pulmonary embolism; Z87.891 Personal history of nicotine dependence; Z88.1 Allergy status to other antibiotic agents; Z88.2 Allergy status to sulfonamides; Z88.8 Allergy status to other drugs, medicaments and biological substances; Z90.89 Acquired absence of other organs; Z90.49 Acquired absence of other specified parts of digestive tract; Z90.710 Acquired absence of both cervix and uterus; Z88.5 Allergy status to narcotic agent
CPT/HCPCS: 36415; 70450; 80048; 80053; 80061; 81001; 82040; 82962; 83036; 83735; 84439; 84443; 85025; 85610; 85730; 87040; 87077; 87086; 87186; 93005; 96360; 96361; J1335; J1815; J7030; J7512

== ENCOUNTER → 2016-11-14 | Outpatient (CLI) | payer MEDICARE | END | disposition home or self-care (01) | LOC: CFH 09:27 | PROVIDERS: ATTEND Family Medicine | DX: Z12.31 Encounter for screening mammogram for malignant neoplasm of breast (principal); Z80.3 Family history of malignant neoplasm of breast | CPT/HCPCS: G0202 ==